=== PATIENT | female | born 1960 | race Caucasian/White ===

== ENCOUNTER → 2019-07-31 | Outpatient (CLI) | payer BC ==
[2019-08-04 15:07] LABS: HPV 16 Negative (Negative); HPV 18 Negative (Negative); HPV OTHER HR TYPES Negative (Negative)
== END | disposition home or self-care (01) ==
LOC: LAB SHORT 09:41 → LAB 09:41
PROVIDERS: Nurse Practitioner Women's Health
DX: Z12.4 Encounter for screening for malignant neoplasm of cervix (principal); Z91.89 Other specified personal risk factors, not elsewhere classified
CPT/HCPCS: 87624; G0123

== ENCOUNTER → 2019-08-28 | Outpatient (CLI) | payer BC | LOC: PLD 12:34 → LAB SHORT 12:34 | DX: N95.0 Postmenopausal bleeding (principal) | CPT/HCPCS: 88305 ==

== ENCOUNTER 2021-12-21 10:55 | Day surgery (SDC) | payer BC ==
[2021-12-20 10:54] LABS: BASOPHILS ABSOLUTE AUTO 0.05 K/mm3 (0.00-0.23); BASOPHILS PERCENT AUTO 1 % (0-2); EOSINOPHILS ABSOLUTE AUTO 0.17 K/mm3 (0.00-0.68); EOSINOPHILS PERCENT AUTO 3 % (0-6); Hemoglobin 11.9 g/dL (11.5-16.0); IMMATURE GRAN ABSOLUTE AUTO 0.01 K/mm3 (0.00-0.10); IMMATURE GRAN PERCENT AUTO 0 % (0-1); LYMPHOCYTES ABSOLUTE AUTO 1.52 K/mm3 (0.84-5.20); LYMPHOCYTES PERCENT AUTO 22 % (21-46); MONOCYTES ABSOLUTE AUTO 0.66 K/mm3 (0.16-1.47); MONOCYTES PERCENT AUTO 10 % (4-13); Mean Corpuscular HGB 25.3 pg (26.0-34.0); Mean Corpuscular HGB Conc 31.3 g/dL (31.5-36.5); Mean Corpuscular Volume 81 fL (80-100); Mean Platelet Volume 11.1 fL (9.1-12.4); NEUTROPHILS ABSOLUTE AUTO 4.44 K/mm3 (1.96-9.15); NEUTROPHILS PERCENT AUTO 65 % (41-73); Platelet Count 315 K/mm3 (150-400); RDW Coefficient Variation 15.4 % (11.7-14.2); RDW Standard Deviation 45.1 fL (35.1-46.3); White Blood Cell Count 6.85 K/mm3 (4.00-11.30)
[2021-12-20 11:02] LABS: Anion Gap 11 mmol/L (6-16); Blood Urea Nitrogen 12 mg/dL (8-24); Bun/Creatinine Ratio 16.9 (12.0-20.0); CO2, Blood 25 mmol/L (21-32); Calcium, Blood 9.3 mg/dL (8.5-10.1); Chloride, Blood 105 mmol/L (98-108); Creatinine, Blood 0.71 mg/dL (0.40-1.00); Glomerular Filtration Rate >60 (60-); Glucose, Blood 94 mg/dL (70-99); Potassium, Blood 3.9 mmol/L (3.5-5.5); Sodium, Blood 141 mmol/L (136-145)
[~2021-12-21] VITALS: Ht 157.5 cm; Wt 71.0 kg
[~2021-12-21 10:55] MED LIST: HYDACE10B; IBUP800 PO; PROG100 PO; SUMA25 PO
--- NOTE | 2021-12-21 11:28 | NUR ---
Upon patient's request, I visit with pt and spouse, Isael and provide a pre-surgery prayer. Pt responds well and shows signs of increased peace.
--- NOTE | 2021-12-21 11:50 | NUR ---
PT AMBULATES TO [facility] STEADY GAIT. Patient confirms NPO status and agrees with scheduled surgery. Lungs clear T/O to Auscultation. History, Chart, Medications and Allergies reviewed before start of procedure. Surgical site prepped with 2% Chlorhexidine cloth wipe. + VOID. ALL BELONGINGS C S/O IN LOBBY.
[2021-12-21] MEDS ORDERED: DOCU100 PO (16:20)
[2021-12-21] MEDS ORDERED: ACET325 (16:21)
[2021-12-21] MEDS ORDERED: IBUP200 (16:21)
--- NOTE | 2021-12-21 18:58 | NUR ---
DISCHARGE SUMMARY POD0 TOTAL ROBOTIC LAP HYSTER, A/O X4, VSS, TOLERATING PO, AMBULATING INDEPENDENTLY, PAIN WELL MANAGED, VOIDING WELL WITH FIRST VOID A FEW MINUTES AFTER ARRIVING TO THE FLOOR. DISCUSSED DISCHARGE INFORMATION WITH THE PATIENT INCLUDING MEDICATIONS, HOME PRECAUTIONS WITH ACTIVITY DO'S AND DONT'S, AND FOLLOW UP INFORMATION. PT REPORTED PAIN SCRIPTS PROVIDED BY OBGYN PRIOR TO SURGERY TODAY AND THEM BEING FILLED AND READY TO GO AT HOME. PT REPORTS NO QUESTIONS AT TIME OF DISCHARGE, IV ACCESS REMOVED AND NO OTHER DEVICES IN PLACE. PT ESCORTED OUT VIA WC TO PRIVATE AUTO TO GO HOME WITH ALL PERSONAL POSSESSIONS.
--- NOTE | 2021-12-22 10:48 | NUR ---
12/22/21 1048 Dona Hoskins VERIFICATION: EDIT CHART.
== END 2021-12-21 18:23 | disposition home or self-care (01) ==
LOC: ORSCMMR 10:55 → ORD 14:00 → ORSCMMR 14:00 → SURS 15:56 → ORSCMMR 18:23
PROVIDERS: Obstetrics & Gynecology
PROC: 8E0W4CZ Robotic Assisted Procedure of Trunk Region, Percutaneous Endoscopic Approach (ICD-10-PCS; principal; 2021-12-21 14:00)
PROC: 0UT14ZZ Resection of Left Ovary, Percutaneous Endoscopic Approach (ICD-10-PCS; principal; 2021-12-21 14:00)
PROC: 0UT94ZZ Resection of Uterus, Percutaneous Endoscopic Approach (ICD-10-PCS; principal; 2021-12-21 14:00)
PROC: 0UT74ZZ Resection of Bilateral Fallopian Tubes, Percutaneous Endoscopic Approach (ICD-10-PCS; principal; 2021-12-21 14:00)
DX: N95.0 Postmenopausal bleeding (principal); N85.2 Hypertrophy of uterus; N80.0 Endometriosis of uterus; D25.9 Leiomyoma of uterus, unspecified; J45.909 Unspecified asthma, uncomplicated; D50.9 Iron deficiency anemia, unspecified; Z79.899 Other long term (current) drug therapy
CPT/HCPCS: 58571; S2900; 36415; 80048; 84703; 85025; 86850; 86900; 86901; 88307; A9270; J1100; J1170; J1580; J1885; J2250; J2370; J2405; J2704; J3010; J7120

== ENCOUNTER 2025-05-19 11:02 | Day surgery (SDC) | payer OTHER ==
[2025-05-19] VITALS (18 sets, daily range): BP systolic 123–162; BP diastolic 72–146
[~2025-05-19] VITALS: Ht 157.5 cm; Wt 83.3 kg
[~2025-05-19 11:02] MED LIST changes: +ACET325; +BISA5EC PO; +CLIMARA1 EACH TOP; +DOCU100 PO; +IBUP200; +PROP10 PO; +Prinivil10 MG PO; +Vitamin D1000 UNI1 PO
--- NOTE | 2025-05-19 11:43 | NUR ---
Ambulatory in Day SurgeryPre-Op teaching done. Pt verbalizes understanding. History, Chart, Medications and Allergies reviewed before start of procedure.Patient confirms NPO status and agrees with scheduled surgery. Patient States Post-Procedure ride home has been arranged.
--- NOTE | 2025-05-19 12:56 | NUR ---
05/19/25 1256 Zahra Espinal PRIOR TO START OF SEDATION: CONFIRMED AND REVIEWED H&P, MEDCICATIONS, ALLERGIES, MEDICAL HISTORY, RESPIRATORY HISTORY, VITAL SIGNS, 3-LEAD EKG, CONSENTS, AND PHYSICIAN ORDERS. PATIENT CONFIRMS NPO STATUS AND AGREES WITH SCHEDULED PROCEDURE. MONITOR INTACT WITH CONTINUOUS PULSE OXIMETRY, CAPNOGRAPHY, 3-LEAD EKG, INTERMITTENT BP. SUPPLEMENTAL O2 TO BE TITRATED THROUGHOUT PROCEDURE TO MAINTAIN O2 SATURATION ABOVE 90%. PATIENT DETERMINED TO BE ASA APPROPRIATE FOR PROPOFOL SEDATION PRIOR TO START OF PROCEDURE BY DR. PEARSON. MALLAMPATI CLASS 3 AIRWAY: VISUALIZATION OF ONLY THE BASE OF THE UVULA.
--- NOTE | 2025-05-19 13:31 | NUR ---
Discharge instructions reviewed with patient. Patient verbalizes understanding. Copy given to patient to take home. Discharged via wheelchair to private car for ride home.
== END 2025-05-19 13:40 | disposition home or self-care (01) ==
LOC: ORSCMMR 11:02 → ORD 12:30 → ORSCMMR 12:30
PROVIDERS: Family Medicine
PROC: 0DBN8ZX Excision of Sigmoid Colon, Via Natural or Artificial Opening Endoscopic, Diagnostic (ICD-10-PCS; principal; 2025-05-19 12:30)
DX: Z12.11 Encounter for screening for malignant neoplasm of colon (principal); D12.5 Benign neoplasm of sigmoid colon; K64.8 Other hemorrhoids; K64.4 Residual hemorrhoidal skin tags; K57.30 Diverticulosis of large intestine without perforation or abscess without bleeding; Z79.899 Other long term (current) drug therapy; E78.5 Hyperlipidemia, unspecified; E66.9 Obesity, unspecified; Z68.34 Body mass index [BMI] 34.0-34.9, adult
CPT/HCPCS: 88305; J2704; J7120